=== PATIENT | male | born 1980 | race Caucasian/White ===

== ENCOUNTER 2021-11-17 15:28 | Emergency (ER) | payer MEDICAID ==
[~2021-11-17] VITALS: Ht 177.8 cm; Wt 81.0 kg
--- NOTE | 2021-11-17 18:10 | NUR ---
Patient moved to bed 24 from the lobby. PA is assessing him now.
--- NOTE | 2021-11-17 18:30 | NUR ---
This patient had been brought back from Triage. No notes save for Triage documentation. Awaiting Covid 19 test results[address] Patient exhibits anxiety but is cooperative. Belongings were itemized, patient was placed in green scrubs.
[2021-11-17 18:53] LABS: URINE AMPHETAMINE SCREEN NEGATIVE (Neg); URINE BARBITUATE SCREEN NEGATIVE (Neg); URINE BENZODIAZEPINES SCREEN POSITIVE (Neg); URINE CANNABINOID SCREEN POSITIVE (Neg); URINE COCAINE SCREEN NEGATIVE (Neg); URINE METHADONE SCREEN NEGATIVE (Neg); URINE OPIATE SCREEN NEGATIVE (Neg); URINE PHENCYCLIDINE SCREEN NEGATIVE (Neg)
[2021-11-17 18:59] LABS: CLARITY,URINE CLEAR (Clear); COLOR,URINE YELLOW (Yellow); GLUCOSE, URINE NEGATIVE (Neg); KETONES,URINE NEGATIVE (Neg); LEUKOCYTE ESTERASE ,URINE NEGATIVE (Neg); NITRITES, URINE NEGATIVE (Neg); OCCULT BLOOD,URINE NEGATIVE (Neg); PROTEIN,URINE NEGATIVE (Neg); UA COLLECTION TYPE VOIDED; UROBILINOGEN,URINE 0.2 E.U/dL (0.2-1.0)
[2021-11-17 19:07] LABS: BASOPHILS # (AUTO) 0.1 X10'3 (0-0.2); BASOPHILS % (AUTO) 0.7 % (0-1); EOSINOPHILS # (AUTO) 0.1 X10'3 (0-0.9); EOSINOPHILS % (AUTO) 0.8 % (0-6); HEMATOCRIT 41.9 % (42.0-52.0); HEMOGLOBIN 14.5 g/dl (14.0-17.9); LYMPHOCYTES # (AUTO) 1.3 X10'3 (1.1-4.8); MEAN CORPUSCULAR HEMOGLOBIN 30.2 PG (27.0-31.0); MEAN CORPUSCULAR HGB CONC 34.6 g/dL (33.0-36.5); MEAN CORPUSCULAR VOLUME 87.4 FL (78-98); MEAN PLATELET VOLUME 9.9 FL (7.4-10.4); MONOCYTES # (AUTO) 0.4 X10'3 (0-0.9); MONOCYTES % (AUTO) 5.3 % (2-12); NEUTROPHILS # (AUTO) 6.6 X10'3 (1.8-7.7); NEUTROPHILS % (AUTO) 78.2 % (42-75); PLATELET COUNT 190 X10'3 (140-440); RED BLOOD COUNT 4.79 X10'6 (4.70-6.10); RED CELL DISTRIBUTION WIDTH 12.4 % (11.5-14.5); WHITE BLOOD COUNT 8.4 X10'3 (4.5-11.0)
[2021-11-17 19:08] LABS: ALANINE AMINOTRANSFERASE 27 U/L (12-78); ALBUMIN 4.1 G/DL (3.4-5.0); ALBUMIN/GLOBULIN RATIO 1.3 (1.1-1.5); ALKALINE PHOSPHATASE 63 IU/L (46-116); ANION GAP 7 (8-16); ASPARTATE AMINO TRANSFERASE 14 U/L (10-37); BILIRUBIN,TOTAL 0.5 MG/DL (0.1-1.0); BLOOD UREA NITROGEN 11 MG/DL (7-18); BUN/CREATININE RATIO 10.5 (5.4-32.0); CALCIUM 8.8 MG/DL (8.5-10.1); CHLORIDE 104 MMOL/L (99-107); CREATININE 1.05 MG/DL (0.60-1.10); GLUCOSE 90 MG/DL (70-104); POTASSIUM 3.9 MMOL/L (3.5-5.1); SODIUM 140 MMOL/L (135-145); TOTAL CARBON DIOXIDE 28.8 MMOL/L (24-32); TOTAL PROTEIN 7.3 G/DL (6.4-8.2); eGFR 79 ML/MIN
[2021-11-17 19:17] LABS: ETHANOL < 0.010 GM/DL (0.0-0.010)
--- NOTE | 2021-11-17 19:37 | NUR ---
Patient exhibits anxiety. He denies S/I or H/I at this time. Patient tells this writer editor that he regrets making S/I statements. Patient states he wants to go home. The patient was advised once again that he is on a 1799 hold. Patient reluctently acknowledges this fact.
[2021-11-17] MEDS ORDERED: hydrOXYzine 25 MG tablet PO PRN (20:05)
[2021-11-17] MEDS ORDERED: SERT25TA PO (20:13)
[2021-11-17] MEDS ORDERED: OMEP40CA21 PO (20:13)
[2021-11-17] MEDS ORDERED: QUET25TA PO (20:13)
[2021-11-17] MEDS: diphenhydrAMINE 25mg capsule PO SCH (21:03)
[2021-11-17] MEDS: sertraline 25mg tablet PO SCH (21:03)
[2021-11-17] MEDS: Melatonin 3mg tablet PO SCH (21:04)
[2021-11-17] MEDS: QUEtiapine 25mg tablet PO SCH (21:04)
--- NOTE | 2021-11-17 21:20 | NUR ---
Patient is medication compliant. Frequent rounding for patient and staff safety.
--- NOTE | 2021-11-17 22:17 | NUR ---
The patient is now sleeping quietly. No distress.
--- NOTE | 2021-11-17 23:59 | NUR ---
Patient is sleeping quietly in a mid fowlers position, knees flexed.
--- NOTE | 2021-11-18 01:02 | NUR ---
Patient is sleeping in a low fowlers position. No distress.
--- NOTE | 2021-11-18 02:17 | NUR ---
Patient is sleeping quietly in a low fowlers positions. His arms are extended over his head. No distress.
--- NOTE | 2021-11-18 04:53 | NUR ---
Patient is sleeping quietly in a low fowlers position. He has self repositioned in bed.
--- NOTE | 2021-11-18 05:00 | NUR ---
Note celine in EDM - 11/18/21 at 0614 by YORDY Patient will be accepted to [facility] in [place], [place]. The accepting MD is Dr. Matamoros. Please provide a nurse to nurse prior to transport. [phone] Guzman is the coordinating nurse. Her number is [phone], extention option 2.
--- NOTE | 2021-11-18 06:30 | NUR ---
Received pt. sleeping in bed at the beginning of the shift, laying on his back, rr are even and unlabored.
[2021-11-18] MEDS: pantoprazole 40mg Tablet.DR PO SCH (08:18)
--- NOTE | 2021-11-18 08:30 | NUR ---
Pt. was compliant with ordered AM medication and 1:1 was completed at bedside. He is A&O X4, and states, "My dad and friend sent me here, but I don't think I need to be here." Pt. is hopeful that he will be discharged today once evaluated by [facility] so he can return home and see his parents who are currently visiting from [place]. Pt. currently denies S/I, but admits to chronic intermittent depression. He reports he has a therapist who he regularly sees. Pt. continues to calmly lay in bed at this time awaiting evaluation.
--- NOTE | 2021-11-18 09:19 | NUR ---
PT ATE ONLY THE VALLE FROM THE BREAKFAST TRAY PT STATED "I DO NOT NORMALLY EAT BREAKFAST"
--- NOTE | 2021-11-18 10:35 | NUR ---
Pt. continues to await evaluation by [facility], he is laying in bed sleeping on his left side at this time.
--- NOTE | 2021-11-18 12:28 | NUR ---
Pt. refused lunch reporting that he usually only eats one meal per day at dinner time. He was offered snacks, however refused. Pt. is laying in bed watching TV at this time, no s/s of distress noted.
--- NOTE | 2021-11-18 14:27 | NUR ---
Pt. is sitting on the edje of the bed at this time waiting to talk with [facility].
--- NOTE | 2021-11-18 15:33 | NUR ---
PT FRIEND CALLED (SALIMAOPALYAN WADDELL), REQUESTED TO KNOW PT CONDITION AND HOW THEY WERE DOING, TECH ASKED PT IF HE WANTED ANY INFORMATION RELEASED TO INDIVIDUAL. PT REQUESTED NO INFORMATION BE RELEASED TO THE INDIVIDUAL.
--- NOTE | 2021-11-18 16:33 | NUR ---
Pt. is sleeping at this time, laying on his back, rr are even and unlabored.
--- NOTE | 2021-11-18 18:00 | NUR ---
Pt. continues to watch TV at this time, laying in bed, no s/s of distress noted.
--- NOTE | 2021-11-18 19:29 | NUR ---
The patient has been making calls and watching tv since change of shift. He was polite during the evening assessment. He admits to making suicidal statements in the past two days but denies that he is having suicidal thoughts at this time. Psychotic symptoms were denied and not apparent during the evening assessment.
[2021-11-18] MEDS: Melatonin 3mg tablet PO SCH (20:09)
[2021-11-18] MEDS: diphenhydrAMINE 25mg capsule PO SCH (20:10)
[2021-11-18] MEDS: QUEtiapine 25mg tablet PO SCH (20:10)
[2021-11-18] MEDS: sertraline 25mg tablet PO SCH (20:10)
--- NOTE | 2021-11-18 20:45 | NUR ---
The patient is resting on his bed
--- NOTE | 2021-11-18 22:07 | NUR ---
The patient appears to be sleeping
--- NOTE | 2021-11-19 00:22 | NUR ---
The patient appears to be sleeping
--- NOTE | 2021-11-19 01:29 | NUR ---
Nurse to nurse with [facility] for placement
--- NOTE | 2021-11-19 01:48 | NUR ---
The patient has been accepted at [place]
--- NOTE | 2021-11-19 03:18 | NUR ---
The patient appears to be sleeping
--- NOTE | 2021-11-19 05:08 | NUR ---
The patient is resting on his bed
--- NOTE | 2021-11-19 06:26 | NUR ---
The patient up to use the bathroom and was made aware that he will be transferred to [facility]
[2021-11-19] MEDS: pantoprazole 40mg Tablet.DR PO SCH (07:28)
--- NOTE | 2021-11-19 08:08 | NUR ---
The patient is resting on his bed. Per [facility] the patient will be picked up by the [facility] dump truck [place] [address] [place] [id number] to transport to [place]
--- NOTE | 2021-11-19 09:33 | NUR ---
The patient verbalizes anxiety about being transferred to another inpatient facility. He was made aware of the process.
--- NOTE | 2021-11-19 10:27 | NUR ---
The patient is resting on his bed talking on the phone
[2021-11-19 11:46] VITALS: BP 107/66
== END 2021-11-19 11:53 ==
LOC: ER 15:28
DX: F32.A Depression, unspecified (principal); Z20.822 Contact with and (suspected) exposure to COVID-19; R45.851 Suicidal ideations; K21.9 Gastro-esophageal reflux disease without esophagitis; F32.9 Major depressive disorder, single episode, unspecified; F12.10 Cannabis abuse, uncomplicated
CPT/HCPCS: 36415; 80053; 80305; 80320; 81003; 84443; 85025; 87811; 93005; 99285; Q0163; Q0177